=== PATIENT | male | born 1945 | race Caucasian/White ===

== ENCOUNTER 2023-09-01 17:16 | Observation (INO) | payer OTHER ==
[2023-09-01] VITALS (16 sets, daily range): BP systolic 145–185; BP diastolic 81–100
[~2023-09-01] VITALS: Ht 170.2 cm; Wt 81.1 kg
[2023-09-01 17:40] LABS: BASO% 0.3 % (0-3); EOS% 2.3 % (0-8); HEMATOCRIT 44.6 % (39.0-50.0); HEMOGLOBIN 14.5 g/dl (14.0-18.0); IMMATURE GRANULOCYTES 0.1 % (0.0-5.0); LYMPH% 27.3 % (15-41); MEAN CELL VOLUME 91.8 fL CALC (80.0-100.0); MEAN CORPUSCULAR HGB 29.8 pG CALC (26.0-32.0); MEAN CORPUSCULAR HGB CONC 32.5 g/dL CAL (32.0-36.0); MONO% 9.9 % (2-13); NEUT# 5.68 thou/uL (1.82-7.42); NEUT% 60.1 % (42-76); RED BLOOD COUNT 4.86 mill/uL (4.70-6.10); RED CELL DISTRI WIDTH 13.2 % (11.5-15.5)
[2023-09-01 17:57] LABS: INTERNATIONAL NORMALIZED RATIO 1.1 RATIO (0.7-1.3); PROTHROMBIN TIME 10.3 SECONDS (9.0-12.5)
[2023-09-01 17:59] LABS: ALBUMIN 4.3 g/dL (3.2-5.0); ALKALINE PHOSPHATASE 62 u/l (38-126); ANION GAP 9 (6-22 (CALC)); BILIRUBIN, TOTAL 0.8 mg/dL (0.2-1.3); BUN 32 mg/dL (8-23); BUN/CREATININE RATIO 32 (12-20 (CALC)); CALCULATED LDLCHOLESTEROL 99 mg/dL (62-129 (CALC)); CARBON DIOXIDE 27 mmol/l (22-30); CHLORIDE 108 mmol/l (95-108); CHOLESTEROL HDL RATIO 3.1 (<4.4 (CALC)); GFR FOR AFR.AMER. > 60 ML/MIN (>=60 (CALC)); GFR OTHER RACES > 60 ML/MIN (>=60 (CALC)); HDL CHOLESTEROL 60 mg/dL (39.0-59.0); POTASSIUM 4.1 mmol/l (3.5-5.1); SGOT/AST 32 u/l (19-48); SODIUM 140 mmol/l (137-146); TOTAL CHOLESTEROL 186 mg/dl (0-199); TOTAL PROTEIN 7.5 g/dL (6.3-8.2); TOTAL TRIGLYCERIDES 133 mg/dl (0-149); VLDL CHOLESTROL 27 mg/dl (0-38 (CALC))
[2023-09-01] MEDS ORDERED: CLOPIDOGREL BISULFATE 75 MG/TAB TAB PO ONE (18:05)
[2023-09-01] MEDS ORDERED: ASPIRIN 81 MG/TAB PO ONE (18:05)
[2023-09-01] MEDS ORDERED: SODIUM CHLORIDE 0.9% 1,000 ML IV ONE (18:05)
[2023-09-01 19:45] LABS: URINE BILIRUBIN - DIPSTICK Negative (NEGATIVE); URINE BLOOD DIPSTICK Negative (NEGATIVE); URINE GLUCOSE - DIPSTICK Negative (NEGATIVE); URINE KETONE Negative (NEGATIVE); URINE LEUK ESTERASE Negative (NEGATIVE); URINE NITRITE - DIPSTICK Negative (Negative); URINE PROTEIN - DIPSTICK Negative (NEG-TRACE); URINE UROBILINOGEN - DIPSTICK 0.2 E.U./dL (0.2)
[2023-09-01 19:46] LABS: URINE COLOR Yellow
[2023-09-01] MEDS ORDERED: MAGNESIUM HYDROXIDE 30 ML UDC PO PRN (20:20)
[2023-09-01] MEDS ORDERED: ACETAMINOPHEN 325 MG/TAB PO PRN (20:20)
[2023-09-01] MEDS ORDERED: LABETALOL HCL 20 MG/ 4 ML CARTRG IV PRN (20:25)
[2023-09-01] MEDS ORDERED: ENOXAPARIN SODIUM 40 MG/0.4 ML SYR SC SCH (21:00)
[2023-09-02] VITALS (8 sets, daily range): BP systolic 134–161; BP diastolic 72–87
[2023-09-02] MEDS ORDERED: ASPIRIN EC 81 MG/TAB PO SCH (09:00)
[2023-09-02] MEDS ORDERED: CLOPIDOGREL BISULFATE 75 MG/TAB TAB PO SCH (09:00)
[2023-09-02] MEDS ORDERED: PANTOPRAZOLE SODIUM Sesquihydr 40 MG/TAB PO SCH (09:00)
[2023-09-02] MEDS ORDERED: MIDAZOLAM HCL 2 MG/2 ML VIAL IV PRN (09:30)
== END 2023-09-02 22:47 | disposition short-term general hospital (02) | DRG 93 ==
LOC: ED 17:16 → ED-I 20:17 → ED 20:18 → MS2 20:19
PROVIDERS: Family Medicine; ADMIT Internal Medicine; ATTEND Internal Medicine
DX: G96.198 Other disorders of meninges, not elsewhere classified (principal); H53.2 Diplopia
CPT/HCPCS: G0378; J1650; Q9967